=== PATIENT | female | born 1955 | race Caucasian/White ===

== ENCOUNTER → 2017-06-11 | Outpatient (CLI) | payer BC ==
--- NOTE | 2017-06-11 12:44 | MAMMOGRAPHY REPORT ---
BILATERAL DIGITAL SCREENING MAMMOGRAM WITH CAD: 06/11/2017 CLINICAL HISTORY: Patient presents for routine screening. S/P bilateral augmentation. TECHNIQUE: Bilateral CC and MLO views of the breasts with and without implant displacement views wer e obtained. Current study was also evaluated with a Computer Aided Detection (CAD) system. COMPARISON: Comparison is made to exams dated: 12/12/2015 mammogram, 09/30/2014 mammogram, 04/15/2013 mammogram, 01/10/2012 mammogram, 05/24/2010 mammogram - [facility], and 10/12/2008. BREAST COMPOSITION: There are scattered areas of fibroglandular density in both breasts. FINDINGS: Bilateral subpectoral saline implants are intact. There is a stable benign calcification in the anterior right breast. No suspicious mass, architectural distortion or cluster of suspicious m icrocalcifications is seen. IMPRESSION: ACR BI-RADS CATEGORY 1: NEGATIVE There is no mammographic evidence of malignancy. A 1 year screening mammogram is recommended. The pa tient will receive written notification of the results. Approximately 10% of breast cancers are not detected with mammography. A negative mammographic report should not delay biopsy if a clinically suggestive mass is present. Bertha Jaimes M.D. ay/:06/11/2017 12:15:49 Calender Machine Operator Helper: Monae Sahni, [facility] letter sent: Normal 1/2 BI-RADS Code: ACR BI-RADS Category 1: Negative
== END | disposition home or self-care (01) ==
LOC: C.MAMM 11:32
PROVIDERS: ATTEND Family Medicine
DX: Z12.31 Encounter for screening mammogram for malignant neoplasm of breast (principal)

== ENCOUNTER → 2018-07-09 | Outpatient (CLI) | payer BC ==
--- NOTE | 2018-07-10 14:30 | MAMMOGRAPHY REPORT ---
BILATERAL DIGITAL SCREENING MAMMOGRAM TOMOSYNTHESIS WITH CAD: 07/09/2018 TECHNIQUE: Breast tomosynthesis in addition to standard 2D mammography was performed. Current study w as also evaluated with a Computer Aided Detection (CAD) system. COMPARISON: Comparison is made to exams dated: 06/11/2017 mammogram, 12/12/2015 mammogram, 09/30/2014 mammogram, 04/15/2013 mammogram, 01/10/2012 mammogram, and 05/24/2010 mammogram - [facility]. BREAST COMPOSITION: There are scattered areas of fibroglandular density in both breasts. FINDINGS: No suspicious masses, calcifications, or areas of architectural distortion are noted in either breast . Bilateral subpectoral saline implants are noted. IMPRESSION: ACR BI-RADS CATEGORY 2: BENIGN There is no mammographic evidence of malignancy. A 1 year screening mammogram is recommended.( 019) The patient will receive written notification of the results. Some breast cancers are not detected with mammography. A negative mammographic report should not reyna y biopsy if a clinically suggestive mass is present. Phuong Contreras M.D. /:07/09/2018 15:28:22 Hydrogen Operator: RT Cathryn(John)(Andressa), [facility] letter sent: Normal 1/2 BI-RADS Code: ACR BI-RADS Category 2: Benign
== END | disposition home or self-care (01) ==
LOC: C.MAMM 13:05
PROVIDERS: ATTEND Family Medicine
DX: Z12.31 Encounter for screening mammogram for malignant neoplasm of breast (principal); Z98.82 Breast implant status

== ENCOUNTER 2022-12-13 06:32 | Observation (INO) ==
--- NOTE | 2022-11-19 15:20 | PAT Medication Instructions ---
Medication Instructions Date of Service November 19, 2022 Home Medications Medication Instructions Recorded meloxicam 7.5 mg tablet 7.5 mg PO BID PRN pain #60 tabs 05/03/22 Iodine Drops 6 drp PO QAM levothyroxine 100 mcg capsule 100 mcg PO QAM meloxicam 7.5 mg tablet 7.5 mg PO BID PRN alendronate 70 mg tablet (Fosamax) 70 mg PO WK calcium citrate 200 mg (950 mg) tablet 800 mg PO QAM ergocalciferol (vitamin D2) 1,000 unit capsule 3,000 unit PO QAM lemborexant 10 mg tablet (Dayvigo) 10 mg PO HS magnesium glycinate 100 mg tablet 400 mg PO QAM multivitamin 1 tab PO QAM omega-3 fatty acids 1,000 mg PO QAM phosphatidylserine 100 mg capsule 100 mg PO HS spironolactone 50 mg tablet 50 mg PO BID ASK your surgeon for instructions meloxicam 7.5 mg tablet 7.5 mg PO BID PRN STOP taking 2 weeks before surgery omega-3 fatty acids 1,000 mg PO QAM phosphatidylserine 100 mg capsule 100 mg PO HS DO NOT take the morning of surgery Iodine Drops 6 drp PO QAM alendronate 70 mg tablet (Fosamax) 70 mg PO WK calcium citrate 200 mg (950 mg) tablet 800 mg PO QAM ergocalciferol (vitamin D2) 1,000 unit capsule 3,000 unit PO QAM magnesium glycinate 100 mg tablet 400 mg PO QAM multivitamin 1 tab PO QAM spironolactone 50 mg tablet 50 mg PO BID Take morning of surgery With a small sip of water, OTHERWISE NOTHING TO EAT OR DRINK AFTER MIDNIGHT: levothyroxine 100 mcg capsule 100 mcg PO QAM Take evening before surgery lemborexant 10 mg tablet (Dayvigo) 10 mg PO HS spironolactone 50 mg tablet 50 mg PO BID Other Notes If you have any questions please call us at [phone] or [phone] or [phone] or [phone]
--- NOTE | 2022-11-26 11:10 | Anesthesiology Consultation ---
Date of Service November 26, 2022 Assessment & Plan (1) Encounter for pre-operative examination: Chart Review Chart Review: Acceptable Risk for Surgery and Patient seen in Pre Admission Testing Pt currently scheduled as 23 hours observation. If surgeon decides to change patient to Same Day Joint, patient would be acceptable risk for MIKEL, pending patient is motivated, has good support and surgeon's office completes Same Day Joint Program preop requirements. Per PAT appt on 11/26/22, patient denies any recent travel or large group activities. Pt is vaccinated for Covid. Will leave to surgeon's discretion if preop Covid testing needed. Educated on importance of using Covid precautions one week prior to surgery Left Olecranon ORIF 11/05/18= Done under GA with LMA #4. Atraumatic LMA x1. Teaching & Discussion Pre-Anesthesia Teaching/Discussion Notes: Instructed NPO after midnight before surgery,except medications with 15 cc of water. Medication instructions provided according to the PAT guidelines. History Surgery Operation Date: 12/13/22 11:40 Proposed Procedures p Right Anterior Total Hip Arthroplasty - Dave Hope, Height/Weight Height: 5 ft Weight: 63.5 kg Allergies Allergy/AdvReac Type Severity Reaction Status Date / Time bacitracin Allergy Mild RASH Verified 11/19/22 14:46 [From Neosporin ([id number])] lanolin Allergy Mild rash, itch Verified 11/19/22 14:46 latex Allergy Mild RASH Verified 11/19/22 14:46 mupirocin [From Bactroban] Allergy Mild Rash Verified 11/26/22 11:16 neomycin Allergy Mild RASH Verified 11/19/22 14:46 [From Neosporin ([id number])] polymyxin B Allergy Mild RASH Verified 11/19/22 14:46 [From Neosporin ([id number])] quaternium 15 Allergy Mild Swelling Verified 11/26/22 11:16 of the Eye Medications Home Medications Medication Instructions Recorded Confirmed Last Taken Iodine Drops 6 drp PO QAM 11/04/18 11/19/22 11/05/18 08:00 levothyroxine 100 mcg capsule 100 mcg PO QAM 11/04/18 11/19/22 11/05/18 08:00 meloxicam 7.5 mg tablet 7.5 mg PO BID PRN pain #60 tabs 05/03/22 11/19/22 Unknown alendronate 70 mg tablet (Fosamax) 70 mg PO WK 11/19/22 11/19/22 Unknown calcium citrate 200 mg (950 mg) 800 mg PO QAM 11/19/22 11/19/22 Unknown tablet ergocalciferol (vitamin D2) 1,000 3,000 unit PO QAM 11/19/22 11/19/22 Unknown unit capsule lemborexant 10 mg tablet (Dayvigo) 10 mg PO HS 11/19/22 11/19/22 Unknown magnesium glycinate 100 mg tablet 400 mg PO QAM 11/19/22 11/19/22 Unknown multivitamin 1 tab PO QAM 11/19/22 11/19/22 Unknown omega-3 fatty acids 1,000 mg PO QAM 11/19/22 11/19/22 Unknown phosphatidylserine 100 mg capsule 100 mg PO HS 11/19/22 11/19/22 Unknown spironolactone 50 mg tablet 50 mg PO BID 11/19/22 11/19/22 Unknown Past Medical History Medical History HTN (hypertension) Hypothyroidism Insomnia Osteopenia On Fosamax Exercise / Class Metabolic Activity II 4-5 Yardwork/Stairs/Walk up hill (one flight of stairs - no chest pain or SOB ) Past Family History Family History Other No family history of adverse response to anesthesia Past Surgical History Surgical History History of arthroscopy 2/2 PATELLA FRACTURE History of delivery Hx of arthroscopy of right knee 2016 Hx of blepharoplasty right and left Hx of breast augmentation and redone Hx of colonoscopy Hx of tubal ligation Status post panniculectomy Past Anesthesia History No Hx of Anesthesia Complications (with exception to GA - has constipation issues ) and No Family Hx of Anesthesia Complications History of PONV No Hx of PONV and No Hx of Motion Sickness Social History Smoking Status: Never smoker Do You Dip or Chew Tobacco: No Hx Alcohol Use: Yes alcohol intake frequency: holidays/special occasions only Hx Substance Use: No substance use type: does not use Review of Systems Unknown snoring- sleep alone Patient denies chest pain, shortness of breath, dyspnea on exertion, reflux, cough, wheezing, palpitations. No hx of seizures, stroke, VT. No hx of blood clots or blood transfusions Physical Exam Vital Signs VITALS BP 129/68 P 75 TEMP 98.4 SP02 96% RESP 16 Constitutional no acute distress ENMT Mouth: no TMJ clicking Thyromental Distance: > or= 3.5 Finger Breadths (3.5) Mallampati Class: II Permanent implant top front teeth Neck + limited neck extension (mild) Respiratory normal respiratory effort; no respiratory distress Auscultation: lungs clear to auscultation bilaterally; no wheezes Cardiovascular Rate/Rhythm: regular rate and regular rhythm Heart Sounds: no murmur Vessels: no carotid bruit Musculoskeletal Spine: no pain with cervical ROM Extremities: extremities normal to inspection Psychiatric Orientation: alert Lab Results Anesthesia Preop Results Results Anesthesia Widget: WBC 7.59 K/ul (4.8-10.8) 11/26/22 Hgb 12.6 g/dl (12.0-16.0) 11/26/22 Hct 36.0 % (34.1-44.9) 11/26/22 Plt 354 K/uL (130-400) 11/26/22 Na 132 mmol/L (136-145) L 11/26/22 K 4.8 mmol/L (3.5-5.1) 11/26/22 Cl 99 mmol/L (98-107) 11/26/22 CO2 29 mmol/L (21-32) 11/26/22 BUN 28 mg/dl (6-23) H 11/26/22 Creat 0.82 mg/dl (0.6-1.2) 11/26/22 Glucose Level 88 mg/dl (70-99(Fasting)) 11/26/22 PT 10.3 Seconds (9.0-12.0) 11/26/22 PTT 30.3 Seconds (21.0-31.0) 11/26/22 INR 1.0 (0.9-1.1) 11/26/22 Blood Type O Positive 11/26/22 Antibody Screen NEGATIVE 11/26/22 Testing Electrocardiogram Date: 11/26/22 Findings: + NSR @ (70bpm ) Normal EKG per cardio Chest X-Ray Date: 11/26/22 Findings: + NAD COVID-19 Risk Screen Screening Information COVID-19 Screen Date: 11/26/22 Exposure 21 Days Family/Household +COVID Last 21 Days: No Exposure 10 Days Any COVID Exposure Last 10 Days: No Symptoms Last 10 Days Experienced COVID Sx Last 10 Days: No + COVID 0-90 Days COVID + in Last 0-90 Days: No Risk Plan COVID Risk Plan: No Risk Identified Patient Education COVID Preop Screening Education Complete: Yes
[~2022-12-13 06:32] MED LIST: ACETAMINOPHEN 500 MG TAB PO SCH; FAMOTIDINE 20 MG TAB PO SCH; GABAPENTIN 300 MG CAP PO SCH; LR 500ML BOLUS, THEN 15ML/HR IV SCH; LR 60ML/HR IV SCH; ORTHO JOINT MIX INFIL SCH; TRANEXAMIC ACID 1,000 MG **IV Intra-op IV SCH; TRANEXAMIC ACID 1,000 MG **IV Pre-op IV SCH; ceFAZolin 2000MG 2,000 MG/15 ML SYR IV SCH; dexAMETHasone 4 MG TAB PO SCH
[2022-12-13] MEDS ORDERED: BUPIVACAINE 0.5 % 5 MG/1 ML PF 10ML VIAL ONE (06:38)
[2022-12-13] MEDS ORDERED: PROPOFOL IV EMULSION 10 MG/ML 20 ML VIAL IV ONE (07:46)
[2022-12-13] MEDS ORDERED: ONDANSETRON INJ 2 MG/ML 2 ML VIAL ONE (07:46)
[2022-12-13] MEDS ORDERED: LIDOCAINE 2% MPF LOCAL 5 ML VIAL INFIL ONE (07:46)
[2022-12-13] MEDS ORDERED: MIDAZOLAM HCL 1 MG/ML 2ML VIAL ONE ×2 (07:47)
[2022-12-13] MEDS ORDERED: fentaNYL citrate 100 MCG/2 ML VIAL IV PRN (08:23)
[2022-12-13] MEDS ORDERED: ePHEDrine sulfate 50 MG/ML AMP IV PRN (08:23)
[2022-12-13] MEDS ORDERED: ONDANSETRON INJ 2 MG/ML 2 ML VIAL IV PRN ×2 (08:23→13:49)
[2022-12-13] MEDS ORDERED: ATROPINE SULFATE 0.1 MG/ML 10ML SYR IV PRN (08:23)
--- NOTE | 2022-12-13 08:30 | History & Physical Bridge Note ---
Date of Service December 13, 2022 History & Physical Bridge Note I have examined the patient, reviewed the History & Physical and in the interval since the performance of the History & Physical I have noted the following changes of clinical significance: no changes noted
[2022-12-13] MEDS ORDERED: ORTHO JOINT ANESTHETIC ONE (08:53)
[2022-12-13] MEDS ORDERED: PHENYLEPHRINE HCL 10 MG/ML VIAL ONE (09:38)
[2022-12-13] MEDS ORDERED: ePHEDrine sulfate 50 MG/ML AMP ONE (09:56)
--- NOTE | 2022-12-13 10:30 | Operative Report ---
PG Post Operative Report Pre & Post Diagnosis Operation Date: 12/13/22 09:20 Pre-Op Diagnosis: Degenerative Joint Disease, Right Hip Post-Op Diagnosis: Degenerative Joint Disease, Right Hip I identified the patient and participated in the time-out.: Yes Procedure Operation Date: 12/13/22 09:20 Actual Procedures p Right Anterior Total Hip Arthroplasty--Uncemented(Right) - Dave Hope DO Surgeon Dave Hope DO Financial Solutions Advisor Dave Wilhelm PA-C Estimated Blood Loss 200 Findings Consistent with Post-Op Diagnosis Specimens Right femoral head Description of Procedure Implants used I used a ZimmerBiomet total hip arthroplasty system with a size 3 standard offset Avenir Complete stem, a 46 mm G7 cup with a 25mm screw, an E1 polyethylene liner, a 32 mm ceramic head with a 0 neck. Liliana arrived at the hospital for the above procedure. She was seen in the preoperative holding area and the operative extremity was identified and signed. She was given a spinal anesthetic, a preoperative antibiotic, and TXA. She was then taken back to the operating room and laid on the table in the supine position. She was given basic sedation. The operative leg was secured to a Puristst leg positioner. The hip was then prepped and draped in sterile fashion. A timeout was done and the patient and the operative extremity was properly identified. An anterior approach was used. Dissection was taken down through the fascia and the tensor muscle belly was retracted laterally and the rectus was retracted medially. The circumflex vessels were identified and ligated. The capsule was then incised and tagged for later repair. The femoral neck was then cut and the femoral head was removed. The acetabulum was exposed. Time was spent doing a complete circumferential labral release. Sequential reaming of the acetabulum up to a size 45 reamer was done. Final reamings were done under fluoroscopy to ensure appropriate version. A Biomet 46 mm G7 cup was then impacted into place. A single 25 mm screw was placed. The E1 polyethylene liner was then snapped into place. Surrounding soft tissues were then injected with 100 cc of an orthopedic pain control cocktail. The proximal femur was then exposed. Sequential broaching up to a size 3 broach was done. Off that broach a size 32 head with a 0 neck was trialed. The hip was reduced and fluoroscopic images showed anatomic alignment of the implants in acceptable length. The broach was removed. The final size 3 standard offset Avenir Complete stem was then impacted into place. A ceramic 32 mm head with a 0 neck was then impacted onto the stem and the hip was reduced. Final fluoroscopic images showed anatomic alignment of the hip. The capsule was then closed with #1 Vicryl suture. A dilute betadyne lavage was then done for 3 minutes. The joint was then irrigated with normal saline solution. The fascia was closed with #1 PDS suture. Skin was closed with 2-0 Vicryl, gema, and a Silverlon dressing. She was then transferred to a hospital bed and taken to the post anesthesia care unit in stable condition. She tolerated the procedure well. Dave Wilhelm PA-C, was present for the entire procedure. He was critical for patient positioning, prepping, draping, retraction exposure, wound closure and application of sterile dressing. I attest to the content of the Intraoperative Record and any orders documented therein. Any exceptions are noted below.
--- NOTE | 2022-12-13 11:19 | XRay Report ---
XR hip 1V RT w pelvis CLINICAL HISTORY: IN PACU - Post Surgical TECHNIQUE: 2 views of the right hip and single frontal view of the pelvis were obtained. Comparison: Comparison is made to fluoroscopy of the right hip 12/13/2022 FINDINGS: Patient is status post total hip arthroplasty with expected postsurgical changes including soft tissu e swelling and subcutaneous emphysema. Partial visualization of calcifications in the pelvis which m ay represent calcified fibroids. IMPRESSION: Expected postoperative appearance status post placement of total hip arthroplasty. ACT 112: Negative or not required by law. Electronically signed by: Irineo Dominguez M.D. 12/13/2022 11:18 AM
--- NOTE | 2022-12-13 11:28 | Fluoroscopy Report ---
FL hip RT 1V CLINICAL HISTORY: RT ANTERIOR HIPright hip arthroplasty COMPARISON STUDY: Pelvis and right hip radiographs of same day FLUOROSCOPY TIME: 15.7 seconds FLUOROSCOPY IMAGES: 1 EXPOSURE DOSE: 1.54 mGy (Air Kerma) FINDINGS: Satisfactory alignment of the right hip total joint arthroplasty. Expected postoperative so ft tissue swelling with deep tissue air. No acute fracture or unexpected opaque foreign body. IMPRESSION: Fluoroscopic assistance as above. ACT 112: Negative or not required by law. Electronically signed by: Zev Love M.D. 12/13/2022 11:26 AM
--- NOTE | 2022-12-13 13:09 | Anesthesiology Progress Note ---
Date of Service December 13, 2022 Anesthesia Post Procedure Vital Signs Vital Signs: Temp Pulse Pulse Resp BP Pulse Ox O2 Del Method 12/13/22 13:00 36.3 C L 64 18 100/55 L 96 Room Air 12/13/22 12:50 62 13 98/51 L 94 Room Air 12/13/22 12:40 65 12 94/58 L 95 Room Air 12/13/22 12:30 65 12 97/50 L 95 Room Air 12/13/22 12:20 36.7 C 62 14 99/55 L 96 Room Air 12/13/22 12:10 64 16 104/53 L 93 Room Air 12/13/22 12:00 68 19 102/55 L 95 Room Air 12/13/22 11:50 62 14 106/56 L 94 Room Air 12/13/22 11:40 71 14 98/55 L 95 Room Air 12/13/22 11:30 64 13 101/53 L 94 Room Air 12/13/22 11:20 73 14 109/58 L 96 Room Air 12/13/22 11:10 75 12 106/56 L 93 Room Air 12/13/22 11:00 67 12 101/58 L 94 Room Air 12/13/22 10:53 36.1 C L 70 16 101/55 L 96 Room Air 12/13/22 06:59 36.5 C 78 20 135/69 97 Room Air Transfer of Care Handoff Completed per policy Notes Mental Status: alert / awake / arousable and participated in evaluation Patient Amnestic to Procedure: Yes Nausea / Vomiting: adequately controlled Pain: adequately controlled Airway Patency, RR, SpO2: stable & adequate BP & HR: stable & adequate Hydration State: stable & adequate Neuraxial Anesthesia: was administered and sensory block is resolving Anesthetic Complications: no major complications apparent and Pt Satisfied with anesthetic care
[2022-12-13] MEDS ORDERED: METOCLOPRAMIDE HCL INJ 5 MG/ML 2 ML VIAL IV PRN (13:49)
[2022-12-13] MEDS ORDERED: bisacodyL 10 MG SUPP PR PRN (13:49)
[2022-12-13] MEDS ORDERED: NALOXONE HCL 0.4 MG/1 ML VIAL/CARP IV PRN (13:49)
[2022-12-13] MEDS ORDERED: MAGNESIUM HYDROXIDE SUSP 30 ML UDC PO PRN (13:49)
[2022-12-13] MEDS ORDERED: HYDROmorphone INJ 0.5 MG/0.5 ML SYR IV PRN (13:49)
[2022-12-13] MEDS: ACETAMINOPHEN 500 MG TAB PO SCH ×2 (14:39→22:41)
[2022-12-13] MEDS: SODIUM CHLORIDE 0.9% 1000ML 1,000 ML IV SCH (14:39)
[2022-12-13] MEDS: KETOROLAC TROMETHAMINE 15 MG/ML VIAL IV SCH ×2 (14:39→19:40)
[2022-12-13] MEDS: ceFAZolin 2000MG 2,000 MG/15 ML SYR IV SCH (16:17)
[2022-12-13] MEDS: DOCUSATE SODIUM 100 MG CAP PO SCH (19:35)
[2022-12-13] MEDS: oxyCODONE HCL IR 5 MG TAB (IMMEDIATE RELEASE) PO PRN (19:41)
[2022-12-13] MEDS: [UNRECOGNIZED DRUG - OTHER] PO SCH ×2 (20:49→22:38)
[2022-12-13] MEDS: SPIRONOLACTONE 25 MG TAB PO SCH (20:49)
[2022-12-13] MEDS ORDERED: SENNA 8.6 MG TAB PO SCH (21:00)
[2022-12-13] MEDS ORDERED: PHOSPHATIDYLSERINE PO SCH (21:00)
[2022-12-13] MEDS: ASPIRIN 81 MG ECTAB PO SCH (22:39)
[2022-12-14] MEDS: SODIUM CHLORIDE 0.9% 1000ML 1,000 ML IV SCH (00:16)
[2022-12-14] MEDS: ceFAZolin 2000MG 2,000 MG/15 ML SYR IV SCH (01:59)
[2022-12-14] MEDS: oxyCODONE HCL IR 5 MG TAB (IMMEDIATE RELEASE) PO PRN (02:02)
[2022-12-14] MEDS: KETOROLAC TROMETHAMINE 15 MG/ML VIAL IV SCH ×2 (02:02→08:00)
[2022-12-14] MEDS ORDERED: LEVOTHYROXINE SODIUM 100 MCG TABLET PO SCH (06:30)
[2022-12-14] MEDS: ACETAMINOPHEN 500 MG TAB PO SCH (06:42)
--- NOTE | 2022-12-14 07:15 | Orthopedic Progress Note ---
Date of Service December 14, 2022 Assessment & Plan (1) Status post right hip replacement: Overall she is doing well. She is not having much pain in the right hip. She will be seen by physical therapy today for ambulation and range of motion exercises. She is on aspirin for DVT prophylaxis. She can be discharged home later today. She will follow-up orthopedics in 2 weeks. Radha Ford was seen and examined at bedside this morning. Overall she is doing well. She is having too much pain in the right hip. She has been up and ambulating to the bathroom. She has no complaints.. Review of Systems All systems reviewed & are unremarkable except as noted in HPI & below. Physical Exam On physical examination the right hip, the dressing is relatively clean and dry. Her leg lengths are equal. She has active dorsiflexion plantarflexion of her right ankle.. Results & Data Results & Data Laboratory Results . Diagnostic Findings Postoperative x-rays of the right hip show the prosthesis to be in anatomic alignment without any evidence of fracture, desiccation, or loosening. PG Care Time/CCT Total # of Minutes Spent Total Time Spent with Patient: Total time spent is greater than 50% in coordination of care (as documented) at patient's floor/unit and/or counseling patient: Coding Level of Care Code 77993 Post Operative Follow-Up Diagnoses Status post right hip replacement Z96.641
--- NOTE | 2022-12-14 07:16 | Discharge Summary ---
Date of Service December 14, 2022 Principal Diagnosis Same as "Discharge Diagnosis" noted below under Discharge Instructions. Discharge Exam On physical examination the right hip, the dressing is relatively clean and dry. Her leg lengths are equal. She has active dorsiflexion plantarflexion of her right ankle.. Discharge Data Procedures Performed Operation Date: 12/13/22 09:20 Actual Procedures p Right Anterior Total Hip Arthroplasty--Uncemented(Right) - Dave Hope DO Ordered Studies 12/13/22 09:20 FL hip RT 1V Routine Hospital Course (1) Status post right hip replacement: On December 13, 2022 Liliana arrived at [facility] and underwent a right hip replacement without complication. She had a spinal anesthetic. Postoperatively she was started on aspirin for DVT prophylaxis and transferred to the general orthopedic floors. Her hospital course was uneventful. On postop day #1, her vital signs were stable and her pain was well controlled. She was able to participate well with physical therapy doing ambulation and range of motion exercises. She was then discharged home. She will follow-up with orthopedics in 2 weeks. PG Care Time/CCT Total # of Minutes Spent Total Time Spent with Patient: Total time spent is greater than 50% in coordination of care (as documented) at patient's floor/unit and/or counseling patient: Discharge Plan Discharge Items Patient Disposition: Home - Home Health Services Reason For Visit: POST SURGICAL CARE Discharge Diagnosis: Right hip replacement Activity: Per Instructions section Non-emergency contact: Surgeon Call non-emergency contact if: your wound has increased redness and your wound has increased drainage Follow-up/Referrals: Ewa Almonte DO [Primary Care Provider] - Diet: Regular Addtl Attending Provider Instructions: Activity and Therapy Recommendations: * If you are using [facility] then therapy will be provided at your home until they feel you have accomplished all of your goals. * If you are using [facility] then Physical Therapy will be provided until they feel you are ready to start Outpatient Physical Therapy. * If you are not using home therapy then Outpatient Physical Therapy should start about 3-5 days from your day of surgery. Therapy will last about 6-10 weeks * You were shown a series of exercises in the hospital. Do these exercises three times each day including the exercises you were shown in physical therapy. * Get up and walk several times each day.~ For the first four weeks, try not to stand or walk for more than one hour at a time. If you do stand or walk for more than one hour, you will not hurt anything, but your leg will likely swell.~~ * As you feel comfortable, you may change from the walker or crutches to a cane and~then to independent walking. Medications: * Narcotic You will likely be sent home from the hospital with a prescription for the narcotic pain medication that worked best throughout your stay. * Aspirin Most patients will be required to take Aspirin 81mg twice a day for 6 weeks after surgery. This is obtained sulp-lld-rdnowap and a prescription is not necessary. * Celebrex take Celebrex twice a day for 2 weeks after surgery. * Other medications may be prescribed for specific circumstances. If you have any questions, please call the office at . * Resume previous home medications unless otherwise instructed TEDs/Elastic Stockings: The white elastic stockings help limit swelling and prevent blood clots from forming in your legs. The more you wear them, the more they work. Wear them for six weeks. Dressing Care: Leave the Silverlon dressing in place for 7 days. After 7 days you may remove the dressing. If the incision is not draining then you may leave the gema open to air. If there is a little bit of drainage or if the gema are getting stuck on your clothing then cover the incision with a dry dressing. The gema will be removed at your 2 week follow-up appointment. Showering: You may shower with the Silverlon dressing in place. Do not let the shower spray hit the dressing directly. Pat the Silverlon dressing dry. If the dressing becomes wet underneath, then simply remove the dressing. Keep the incision dry until you are 7 days out from the day of surgery. After 7 days you may remove the Silverlon dressing and shower with the gema exposed. Let soapy water run over the gema and pat them dry. Do not scrub or soak the incision. Things To Watch For: * Drainage from the incision site that occurs more than one week after your surgery. * Increased redness at the incision site. * Fever above 102 degrees Fahrenheit. * Unusual chest pain or shortness of breath. * Call [facility] at with any of the above problems Follow-Up Visit: Follow-up with Dr. Hope's PA (Dave Wilhelm) 2-3 weeks after your day of surgery. He will remove your gema and answer any questions. If you have any additional questions or concerns, Dr Hope is usually in the office at the same time and will be available An appointment was probably scheduled when you signed-up for surgery in the office. If you have any questions call Office Instructions: More detailed instructions as well as Frequently Asked Questions were provided in a folder by our office when you signed-up for surgery. Please review these instructions when you get home. If you have any further questions or concerns, please feel free to call the office at [phone] Pending Studies at Discharge: No Stand-Alone Forms: [facility], Smoking Cessation Medications and DC Order Prescriptions: New aspirin 81 mg Tablet,Delayed Release (Dr/Ec) 81 mg PO BID 42 Days Qty: 84 0RF celecoxib [Celebrex] 200 mg capsule 200 mg PO BID Qty: 28 0RF Rx Instructions: Take 1 pill twice a day for 2 weeks after surgery oxycodone-acetaminophen 5-325 mg tablet 1 tab PO Q6H PRN (Reason: pain) Qty: 30 0RF Continued levothyroxine 100 mcg Capsule 100 mcg PO QAM Iodine Drops 6 drp PO QAM spironolactone 50 mg Tablet 50 mg PO BID Dayvigo 10 mg Tablet 10 mg PO HS multivitamin Tablet 1 tab PO QAM alendronate [Fosamax] 70 mg Tablet 70 mg PO WK Rx Instructions: friday Vitamin D2 1,000 unit Capsule 3,000 unit PO QAM calcium citrate 200 mg (950 mg) Tablet 800 mg PO QAM [place] 3 Fish Oil Capsule 1,000 mg PO QAM magnesium glycinate 100 mg Tablet 400 mg PO QAM phosphatidylserine 100 mg Capsule 100 mg PO HS Discontinued meloxicam 7.5 mg tablet 7.5 mg PO BID PRN (Reason: pain) Qty: 60 0RF Rx Instructions: Take with food Admission Data Admit Date/Time: 12/13/22 10:54 Attending Provider: Dave Hope Admit Provider: Dave Hope Primary Care Provider: Ewa Almonte
[2022-12-14] MEDS ORDERED: dexAMETHasone 4 MG TAB PO SCH (08:00)
[2022-12-14] MEDS: DOCUSATE SODIUM 100 MG CAP PO SCH (08:06)
[2022-12-14] MEDS: SPIRONOLACTONE 25 MG TAB PO SCH (08:06)
[2022-12-14] MEDS: ASPIRIN 81 MG ECTAB PO SCH (08:06)
[2022-12-14] MEDS ORDERED: MULTIVITAMIN TAB PO SCH (09:00)
[2022-12-14] MEDS ORDERED: CHOLECALCIFEROL 1,000 UNITS 25 MCG TAB PO SCH (09:00)
[2022-12-14] MEDS ORDERED: IODINE PO SCH (09:00)
[2022-12-18] MEDS ORDERED: ALENDRONATE SODIUM 70 MG TAB PO SCH (06:30)
== END 2022-12-14 12:29 | disposition home health service (06) ==
LOC: ASU 06:32 → PACUINP 06:32 → 3E 13:46